=== PATIENT | male | born 1955 | race Caucasian/White ===

== ENCOUNTER 2020-10-22 11:30 | Inpatient (IN) | payer OTHER ==
[~2020-10-22] VITALS: Ht 188 cm; Wt 118.5 kg
[2020-10-22] MEDS ORDERED: LORazepam 2MG/ML-1ML VIAL IV ONE (11:45)
[2020-10-22] MEDS ORDERED: diphenhdrAMINE HCL 50 MG/1 ML VL IM ONE (12:45)
[2020-10-22] MEDS ORDERED: HALOPERIDOL LACTATE 5 MG/ML INJ VIAL IM ONE (12:45)
[2020-10-22] MEDS ORDERED: LORazepam 2MG/ML-1ML VIAL IM ONE (12:45)
[2020-10-22 14:48] LABS: Urine Bacteria NONE SEEN /hpf (None Seen); Urine Blood Negative /uL (Negative); Urine Specific Gravity 1.027 (1.001-1.035); Urine WBC 2 /hpf (0 - 3)
[2020-10-22 15:02] LABS: Barbiturate Scree,Urine NEGATIVE (NEGATIVE); Benzodiazephine Screen, Urine NEGATIVE (NEGATIVE); Cannabinoid Screen, Urine POSITIVE (NEGATIVE); Cocaine Screen, Urine NEGATIVE (NEGATIVE); Opiate Scree,Urine NEGATIVE (NEGATIVE); Phencyclidine Screen, Urine NEGATIVE (NEGATIVE)
[2020-10-22 15:09] LABS: Amphetamine Screen, Urine NEGATIVE (NEGATIVE)
[2020-10-22 16:08] LABS: Basophils # (auto) 0 10 ^3/uL (0-0.2); Basophils % (auto) 0.3 % (0.0-2.0); Eosinophils # (auto) 0 10 ^3/uL (0-0.8); Eosinophils % (auto) 0.1 % (0.0-7.0); Hematocrit 38.7 % (41.0-53.0); Hemoglobin 13.6 g/dL (13.5-17.5); Lymphocytes # (auto) 1.1 10 ^3/uL (0.4-5.4); Lymphocytes % (auto) 15.9 % (10.0-50.0); Mean Corpuscular Hemoglobin 32.4 pg (28.0-32.0); Mean Corpuscular Hgb Conc. 35.1 g/dL (32.0-36.0); Mean Corpuscular Volume 92.1 fL (80.0-100.0); Monocytes # (auto) 0.5 10 ^3/uL (0-1.3); Monocytes % (auto) 7.7 % (0.0-12.0); Neutrophils # (auto) 5.2 10 ^3/uL (1.6-8.6); Nucleated Red Blood Cells % 0.2 %; Red Cell Distribution Width 13.4 % (11.8-14.3); White Blood Cell 6.8 10^3/uL (4.4-10.8)
[2020-10-22 16:24] LABS: Albumin 3.4 g/dL (3.4-5.0); Anion Gap 10 (5-15); Blood Alcohol < 3.0 mg/dL (0-5); Blood Urea Nitrogen 16 mg/dL (7-18); Calcium 8.9 mg/dL (8.5-10.1); Carbon Dioxide 23 mmol/L (21-32); Chloride 104 mmol/L (98-107); Glucose 105 mg/dL (74-106); Magnesium 2.1 mg/dL (1.6-2.6); Potassium 3.5 mmol/L (3.5-5.1); Sodium 137 mmol/L (136-145)
[2020-10-22 16:25] LABS: Alanine Aminotransferase 35 U/L (16-61); Aspartate Aminotransferase 49 U/L (15-37); BUN/Creatinine Ratio 15.7; GFR African American 95 mL/min; GFR Non-African American 78 mL/min
[2020-10-22 16:28] LABS: Alkaline Phosphatase 65 U/L (45-117); Bilirubin, Total 2.8 mg/dL (0.2-1.0); Total Protein 6.3 g/dL (6.4-8.2)
[2020-10-22] MEDS ORDERED: MORPHINE SULFATE INJECTION 2 MG/ML SYRG IV PRN (21:00)
[2020-10-22] MEDS ORDERED: ONDANSETRON HCL 4 MG/2 ML VIAL IV PRN (21:00)
[2020-10-22] MEDS ORDERED: NITROGLYCERIN 0.4 MG SL TAB SL PRN (21:00)
[2020-10-22] MEDS ORDERED: LORazepam 2MG/ML-1ML VIAL IV PRN (21:00)
[2020-10-22] MEDS: LACTULOSE 20Gm/30ML SOLN PO SCH (21:59)
[2020-10-22] MEDS: FAMOTIDINE 20 MG TAB PO SCH (21:59)
[2020-10-23 01:00] VITALS: BP 109/61
[2020-10-23] MEDS ORDERED: LACT10SO3 PO (01:31)
[2020-10-23] MEDS ORDERED: MECL25TA18 PO (01:33)
[2020-10-23] MEDS ORDERED: FURO40TA4 PO (01:37)
[2020-10-23] MEDS ORDERED: RIFA550T PO (01:37)
[2020-10-23] MEDS ORDERED: ONDA-144 PO (01:37)
[2020-10-23 05:00] VITALS: BP 105/57
[2020-10-23 06:31] LABS: Albumin 3.1 g/dL (3.4-5.0); Calcium 8.6 mg/dL (8.5-10.1); Potassium 3.4 mmol/L (3.5-5.1)
[2020-10-23 06:34] LABS: BUN/Creatinine Ratio 16.9; Bilirubin, Total 2.8 mg/dL (0.2-1.0); Total Protein 5.7 g/dL (6.4-8.2)
[2020-10-23 06:45] LABS: Basophils # (auto) 0 10 ^3/uL (0-0.2); Basophils % (auto) 0.8 % (0.0-2.0); Eosinophils # (auto) 0.1 10 ^3/uL (0-0.8); Eosinophils % (auto) 1.1 % (0.0-7.0); Hematocrit 37.9 % (41.0-53.0); Hemoglobin 13.3 g/dL (13.5-17.5); Lymphocytes # (auto) 1.5 10 ^3/uL (0.4-5.4); Mean Corpuscular Hemoglobin 32.2 pg (28.0-32.0); Mean Corpuscular Hgb Conc. 35.1 g/dL (32.0-36.0); Mean Corpuscular Volume 91.6 fL (80.0-100.0); Monocytes # (auto) 0.6 10 ^3/uL (0-1.3); Monocytes % (auto) 12.1 % (0.0-12.0); Neutrophils # (auto) 2.9 10 ^3/uL (1.6-8.6); Nucleated Red Blood Cells % 0.2 %; Red Blood Cells 4.14 10^6/uL (4.5-5.90); Red Cell Distribution Width 13.5 % (11.8-14.3); White Blood Cell 5.1 10^3/uL (4.4-10.8)
[2020-10-23 09:03] VITALS: BP 107/59
[2020-10-23] MEDS: FAMOTIDINE 20 MG TAB PO SCH ×2 (09:40→22:06)
[2020-10-23] MEDS: LACTULOSE 20Gm/30ML SOLN PO SCH ×2 (09:40→22:06)
[2020-10-23] MEDS ORDERED: POTASSIUM CHL 20 Meq TABLET PO ONE (12:30)
[2020-10-23 12:46] VITALS: BP 118/82
[2020-10-23 16:43] VITALS: BP 110/66
[2020-10-23] MEDS: SPIRONOLACTONE 25 MG TAB PO SCH (17:40)
[2020-10-23 22:00] VITALS: BP 106/63
[2020-10-23] MEDS: rifAXIMin 550 MG TAB PO SCH (22:06)
[2020-10-24 05:00] VITALS: BP 108/70
[2020-10-24] MEDS: SPIRONOLACTONE 25 MG TAB PO SCH (06:12)
[2020-10-24 08:00] VITALS: BP 98/66
[2020-10-24] MEDS: LACTULOSE 20Gm/30ML SOLN PO SCH (09:21)
[2020-10-24] MEDS: FAMOTIDINE 20 MG TAB PO SCH (09:21)
[2020-10-24] MEDS: rifAXIMin 550 MG TAB PO SCH (09:22)
== END 2020-10-24 13:18 | disposition home or self-care (01) | DRG 442 ==
LOC: EDBD 11:30 → ER 11:30 → TELE 21:00 → TELE-CENTR 23:46
PROVIDERS: ADMIT Nurse Practitioner; ATTEND Internal Medicine
DX: K72.00 Acute and subacute hepatic failure without coma (principal); R45.851 Suicidal ideations; K74.60 Unspecified cirrhosis of liver; F12.90 Cannabis use, unspecified, uncomplicated; F17.200 Nicotine dependence, unspecified, uncomplicated; F41.9 Anxiety disorder, unspecified; D69.6 Thrombocytopenia, unspecified; R41.0 Disorientation, unspecified; Z20.822 Contact with and (suspected) exposure to COVID-19
CPT/HCPCS: 36415; 70450; 80053; 80307; 80320; 81001; 82140; 83735; 85025; 87426; 93005; 96372; 96374; G0378